=== PATIENT | female | born 1955 | race Caucasian/White ===

== ENCOUNTER 2016-05-11 15:02 | Inpatient (IN) | payer OTHER ==
[~2016-05-11] VITALS: Ht 175.3 cm; Wt 105.7 kg
--- NOTE | ~2016-05-11 | H ---
[facility] [place] [address] HISTORY AND PHYSICAL Name: PRETTY JOHNSON TIA Room #: 456-P ADM IN M.R.#: [id number] Admission: 05/11/16 Attend Phys: Mick Menchaca MD Discharge: Date of : 55 Report #: [id number] THIS REPORT FOR: //name// CC: YANIRA physician/PCP Mick Menchaca DATE OF SERVICE: 05/11/2016 TYPE OF DICTATION: Admission H and P after uvhb-xa-vomi encounter. CHIEF COMPLAINT: Left lower extremity redness. HISTORY OF PRESENT ILLNESS: A 60-year-old female presents to the ER complaining of left thigh pain, mainly redness over the last 3 weeks. It was coming and going, she was using some treatments as an outpatient, but the condition continues to recur. The patient reported that this started as a skin nodule and did get worsen over the last night. So, patient visiting some ER and they did some antibiotic shots without any response. She stated that she has a fever of 101, but she took some Motrin this afternoon. She stated that she was receiving treatment for the last 3 weeks for this redness, but with wax and wane. She has left foot deformity which is going on for a long time and she is following with the wound clinic for that. REVIEW OF SYSTEMS: Except that mentioned in the H and P, all other systems are negative. PAST MEDICAL HISTORY: Positive for hypertension and diabetes mellitus. PAST SURGICAL HISTORY: Multiple surgeries in the foot, mainly left foot and multiple surgeries in the wrist, shoulder. ALLERGIES: She is allergic to DEMEROL. MEDICATIONS: See admission reconciliation sheet. SOCIAL HISTORY: She does not smoke, drink or use any recreational drugs. PHYSICAL EXAMINATION: GENERAL: She is alert, oriented, not in acute distress. VITAL SIGNS: Blood pressure 93/68, temperature 37, pulse 116, respirations 22. HEENT: PERRLA. Intact extraocular muscles. No icterus. NECK: Supple, no JVD, no bruit, no thyroid. CHEST: Good air entry both sides. Normal respiratory effort. CARDIOVASCULAR: Regular rate and rhythm. No murmur, rub or gallop. ABDOMEN: Lax, nontender. Positive bowel sounds. No organomegaly appreciated. EXTREMITIES: No cyanosis, clubbing or edema. There is a deformity in the left [facility] [address] [place] [address] HISTORY AND PHYSICAL Name: PRETTY JOHNSON TIA Room #: 456-P [facility]#: [id number] Admission: 05/11/16 Attend Phys: Mick Menchaca MD Discharge: Date of : 55 Report #: [id number]. SKIN: There is significant erythema, warm and tenderness in the left inner thigh. NEUROLOGIC: Cranial nerves 2-12 are intact. No focal neurological signs. PSYCHIATRIC: Normal affect, mood and judgment. LABORATORY DATA: She has a sodium of 139, potassium 4.4, chloride 103, carbon dioxide 26, anion gap 10, BUN 15, creatinine 1.2, lactic acid 1.4, glucose 204. LFTs are within normal. CBC with differential within normal. ASSESSMENT AND PLAN: 1. Left lower extremity cellulitis. We are going to admit the patient to the hospital. She failed outside treatment so far, so we are going to start her on Zosyn and vancomycin and do some cultures, blood cultures and skin cultures if necessary. 2. Hypertension, seems to be in a good range, so we are going to continue home medicines for that. 3. Diabetes mellitus. Her blood sugars are high. We are going to continue some long-acting insulin on sliding scale for now. 4. Acute renal failure with creatinine 1.2. I do not know her baseline, but her creatinine is elevated, so we are going to hydrate her gently and in the same time, follow her kidney function. <ELECTRONICALLY SIGNED> By: Mick Menchaca MD 05/12/16 0921 [id number] Mick Menchaca MD /nt
--- NOTE | ~2016-05-11 | HC ---
[facility] [place] [address] CONSULTATION Name: PRETTY JOHNSON TIA Room #: 456-P ADM IN M.R.#: [id number] Admission: 05/11/16 Attend Phys: Mick Menchaca MD Discharge: Date of : 55 Report #: [id number] THIS REPORT FOR: //name// CC: YANIRA physician/PCP Mick Menchaca INFECTIOUS DISEASE CONSULTATION REASON FOR CONSULTATION: I was asked to evaluate concerning left lower extremity infection. HISTORY OF PRESENT ILLNESS: The patient was a 60-year-old diabetic who has a left foot crush injury 18 years ago, required surgical debridement and latissimus dorsi flap reconstruction of the soft tissues. Overall, has done reasonably well, although she has had a continued sinus tract to the plantar aspect of her first metatarsal head. She has been treating this as an outpatient and with podiatry. Over the last year or so, she has been unable to get it to heal. 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 She has [facility] [place]. She has been seen by Infectious Diseases several months ago, and treated with a two week course of antibiotics, but she noticed no improvement. She had been off antibiotics for at least 2 or 3 months. She has had CT scan of the foot, which showed no evidence of osteomyelitis. Over the last several weeks, she has noticed increased pain, swelling involving the medial foot as well as upper medial calf and thigh. No antibiotics have been given. She then developed fever over 102 degrees the day of her admission. Because of this, she presented for further evaluation. There has been no drainage of significance from her foot. We have no recent cultures. She has been placed on vancomycin and Zosyn. Continues to have swelling and tenderness in the medial leg. No history of MRSA infections. Diabetes has been under good control. ALLERGIES: DEMEROL. MEDICATIONS: As noted on her MAR, now on vancomycin and Zosyn. PAST MEDICAL HISTORY: Diabetes, otherwise reasonably healthy. Does have some hypertension. SOCIAL HISTORY: Nonsmoker, no significant alcohol intake. REVIEW OF SYSTEMS: No cough, sputum, nausea, vomiting, diarrhea, dysuria or frequency. PHYSICAL EXAMINATION: VITAL SIGNS: Afebrile, hemodynamically stable. GENERAL: She is alert and cooperative and pleasant, no acute distress. [address] [address] CONSULTATION Name: PRETTY JOHNSON TIA Room #: 456-P [facility] IN .R.#: [id number] Admission: 05/11/16 Attend Phys: Mick Menchaca MD Discharge: Date of : 55 Report #: [id number] HEENT: Unremarkable. NECK: Supple. LUNGS: Clear. HEART: Regular without murmur. ABDOMEN: Soft and nontender. No hepatosplenomegaly or mass. Moderately obese. EXTREMITIES: Pulses in the left lower extremity, 2+ in the femoral, 2+ in the popliteal, 2+ in the dorsalis pedis and posterior tibial. She had left medial foot changes from her myocutaneous flap coverage. There is a small wound over the plantar aspect of her first metatarsal head. No purulent drainage. Did not appear to be any sinus tract. There was erythema to the posterior medial aspect of her ankle, which extended up her medial and anterior calf and medial thigh. There was evidence of lymphangitis with nodular area both in the calf and in the thigh. Groin was unremarkable. Capillary refill in the toes normal. Foot was malformed from the previous injury. Sensation was intact. LABORATORY STUDIES: Sodium 143, potassium 4.3, bicarbonate of 26, creatinine 1, liver function test normal. Hemoglobin 11.9, white count 7.2, platelet count 173,000. Differential was unremarkable. Vancomycin level 14. Blood cultures are negative. No x-rays obtained. IMPRESSION: A 60-year-old with cellulitis and lymphangitis involving the left lower leg. This seems to emanate from the medial foot. I suspect from the wound over the first metatarsal. This would typically be bacterial in nature. With the chronicity of the changes also must be concerned about fungal infection. Atypical mycobacterium would also be considered. RECOMMENDATION: Continue IV antibiotic therapy, apply heat, moderate elevation. If no improvement, then we will consider biopsy for culture and pathology. We will check antibody. <ELECTRONICALLY SIGNED> By: Skinny Villalba MD 05/15/16 0918 [id number] Skinny Villalba MD /nt
[2016-05-11 15:03] VITALS: BP 93/68
[2016-05-11] MEDS ORDERED: UNICOMPLEX M TA1 TA1 PO (15:24)
[2016-05-11] MEDS ORDERED: LISINOPRIL10 MG PO (15:24)
[2016-05-11] MEDS ORDERED: ZANTAC 150MG T150 MG PO (15:24)
[2016-05-11] MEDS ORDERED: METFORMIN HCL500 MG PO (15:24)
[2016-05-11] MEDS ORDERED: VITAMIN D3400 UNIT PO (15:24)
[2016-05-11 15:50] LABS: ABSOLUTE NEUTROPHILS 6.6 thou/uL (1.4-8.2); BASOPHILS 0.6 % (0.0-2.0); EOSINOPHILS 0.5 % (0.0-3.0); HEMATOCRIT 37.8 % (37.0-47.0); HEMOGLOBIN 12.5 gm/dL (12.0-15.0); LYMPHOCYTES 23.5 % (24.0-44.0); MANUAL DIFF NO; MCHC 33.1 % (28.0-37.0); MCV 90.6 fL (80.0-100.0); MONOCYTES 5.5 % (1.0-8.0); PLATELET COUNT 181 thou/uL (150-400); POLYS 69.9 % (36.0-66.0); RBC 4.17 mil/uL (4.20-5.00); RDW 13.3 % (10.5-14.5); WBC 9.5 thou/uL (4.0-11.0)
[2016-05-11 15:59] LABS: CALCIUM 8.8 mg/dL (8.5-10.1); CREATININE 1.2 mg/dL (0.6-1.3)
[2016-05-11 16:04] LABS: ALBUMIN 3.5 g/dL (3.4-5.0); POTASSIUM 4.4 mmol/L (3.5-5.1); TOTAL BILIRUBIN 0.5 mg/dL (<0.1-1.0); TOTAL PROTEIN 8.2 g/dL (6.4-8.2)
[2016-05-11 17:00] VITALS: BP 135/78
[2016-05-11 17:20] VITALS: BP 141/93
[2016-05-11 19:29] VITALS: BP 114/74
[2016-05-11 23:40] VITALS: BP 106/74
[2016-05-12] MEDS ORDERED: IBUPROFEN 800800 M1 PO (00:23)
[2016-05-12] MEDS ORDERED: NORCO 10-325 T1 EACH PO (00:24)
[2016-05-12 04:43] VITALS: BP 127/66
[2016-05-12 05:44] LABS: HEMATOCRIT 35.2 % (37.0-47.0); HEMOGLOBIN 11.5 gm/dL (12.0-15.0); MCH 30.1 pg (26.0-34.0); MCHC 32.7 % (28.0-37.0); MCV 92.2 fL (80.0-100.0); RBC 3.82 mil/uL (4.20-5.00); RDW 13.4 % (10.5-14.5); WBC 9.3 thou/uL (4.0-11.0)
[2016-05-12 05:54] LABS: CALCIUM 8.7 mg/dL (8.5-10.1); POTASSIUM 4.1 mmol/L (3.5-5.1)
[2016-05-12 08:00] VITALS: BP 113/70
[2016-05-12 11:32] VITALS: BP 126/65
[2016-05-12 16:00] VITALS: BP 126/73
[2016-05-12 21:03] VITALS: BP 119/63
[2016-05-13 01:19] LABS: ABSOLUTE NEUTROPHILS 5.7 thou/uL (1.4-8.2); BASOPHILS 0.2 % (0.0-2.0); EOSINOPHILS 1.7 % (0.0-3.0); HEMATOCRIT 35.3 % (37.0-47.0); HEMOGLOBIN 11.5 gm/dL (12.0-15.0); LYMPHOCYTES 23.4 % (24.0-44.0); MCHC 32.5 % (28.0-37.0); MCV 92.3 fL (80.0-100.0); MONOCYTES 10.7 % (1.0-8.0); PLATELET COUNT 151 thou/uL (150-400); RBC 3.82 mil/uL (4.20-5.00); RDW 13.2 % (10.5-14.5)
[2016-05-13 01:24] LABS: MANUAL DIFF NO
[2016-05-13 01:42] LABS: CALCIUM 8.7 mg/dL (8.5-10.1); POTASSIUM 4.3 mmol/L (3.5-5.1)
[2016-05-13 04:00] VITALS: BP 130/81
[2016-05-13 07:30] VITALS: BP 120/75
[2016-05-13 12:20] VITALS: BP 125/72
[2016-05-13 16:05] VITALS: BP 120/71
[2016-05-13 19:10] VITALS: BP 125/69
[2016-05-14 04:15] VITALS: BP 133/71
[2016-05-14 05:40] LABS: ABSOLUTE NEUTROPHILS 4.3 thou/uL (1.4-8.2); BASOPHILS 0.3 % (0.0-2.0); HEMATOCRIT 36.8 % (37.0-47.0); HEMOGLOBIN 11.9 gm/dL (12.0-15.0); LYMPHOCYTES 29.8 % (24.0-44.0); MCH 29.7 pg (26.0-34.0); MCHC 32.5 % (28.0-37.0); MCV 91.4 fL (80.0-100.0); MONOCYTES 8.9 % (1.0-8.0); PLATELET COUNT 173 thou/uL (150-400); RBC 4.02 mil/uL (4.20-5.00); RDW 13.5 % (10.5-14.5); WBC 7.2 thou/uL (4.0-11.0)
[2016-05-14 05:43] LABS: MANUAL DIFF NO
[2016-05-14 05:51] LABS: CALCIUM 9.2 mg/dL (8.5-10.1); POTASSIUM 4.3 mmol/L (3.5-5.1)
[2016-05-14 09:15] VITALS: BP 115/74
[2016-05-14 12:13] VITALS: BP 126/78
[2016-05-14 16:24] VITALS: BP 113/63
[2016-05-14 19:46] VITALS: BP 131/80
[2016-05-15 03:49] VITALS: BP 163/69
[2016-05-15 03:58] VITALS: BP 151/61
[2016-05-15 05:41] LABS: ABSOLUTE NEUTROPHILS 3.7 thou/uL (1.4-8.2); BASOPHILS 0.4 % (0.0-2.0); EOSINOPHILS 2.4 % (0.0-3.0); HEMATOCRIT 37.1 % (37.0-47.0); HEMOGLOBIN 12.2 gm/dL (12.0-15.0); MCH 30.1 pg (26.0-34.0); MCHC 32.9 % (28.0-37.0); MCV 91.4 fL (80.0-100.0); MONOCYTES 8.8 % (1.0-8.0); PLATELET COUNT 188 thou/uL (150-400); POLYS 55.4 % (36.0-66.0); RBC 4.06 mil/uL (4.20-5.00); WBC 6.8 thou/uL (4.0-11.0)
[2016-05-15 05:42] LABS: MANUAL DIFF NO
[2016-05-15 05:57] LABS: CREATININE 0.9 mg/dL (0.6-1.3); POTASSIUM 4.7 mmol/L (3.5-5.1)
[2016-05-15 05:58] LABS: CALCIUM 9.2 mg/dL (8.5-10.1)
[2016-05-15 09:50] VITALS: BP 127/82
[2016-05-15 13:00] VITALS: BP 129/63
[2016-05-15 16:00] VITALS: BP 122/59; BP 137/71
[2016-05-15 20:41] VITALS: BP 99/57
[2016-05-16 04:21] VITALS: BP 143/76
[2016-05-16 08:20] VITALS: BP 130/77
[2016-05-16 11:55] VITALS: BP 128/84
[2016-05-16] MEDS ORDERED: KEFLEX500 MG PO (16:58)
[2016-05-16 17:04] VITALS: BP 128/84
== END 2016-05-16 18:31 | disposition home or self-care (01) | DRG 638 ==
LOC: ER 15:02 → EROBS 16:21 → 4W 16:21
PROVIDERS: Hospitalist; Physician Assistant
DX: E11.628 Type 2 diabetes mellitus with other skin complications (principal); L03.116 Cellulitis of left lower limb; N17.9 Acute kidney failure, unspecified; I10 Essential (primary) hypertension; Z98.890 Other specified postprocedural states; Z88.5 Allergy status to narcotic agent
CPT/HCPCS: 10045

== ENCOUNTER → 2016-12-25 | Outpatient (CLI) | payer OTHER ==
[~2016-12-25] MED LIST: IBUPROFEN 800800 M1 PO; KEFLEX500 MG PO; LISINOPRIL10 MG PO; METFORMIN HCL500 MG PO; NORCO 10-325 T1 EACH PO; UNICOMPLEX M TA1 TA1 PO; VITAMIN D3400 UNIT PO; ZANTAC 150MG T150 MG PO
== END ==
LOC: HYPER 07:03
DX: E11.621 Type 2 diabetes mellitus with foot ulcer (principal); L97.522 Non-pressure chronic ulcer of other part of left foot with fat layer exposed; E66.01 Morbid (severe) obesity due to excess calories; I10 Essential (primary) hypertension

== ENCOUNTER 2016-12-29 16:27 | Inpatient (IN) | payer OTHER | END 2017-01-01 14:37 | disposition home health service (06) | DRG 871 | LOC: ER 16:27 → EROBS 19:06 → 4E 20:39 | PROC: 05H533Z Insertion of Infusion Device into Right Subclavian Vein, Percutaneous Approach (ICD-10-PCS; principal; 2016-12-31) | DX: A41.9 Sepsis, unspecified organism (principal); N17.0 Acute kidney failure with tubular necrosis; L03.116 Cellulitis of left lower limb; I10 Essential (primary) hypertension; E66.9 Obesity, unspecified; M14.672 Charcot's joint, left ankle and foot; E11.621 Type 2 diabetes mellitus with foot ulcer; L97.529 Non-pressure chronic ulcer of other part of left foot with unspecified severity; Z79.899 Other long term (current) drug therapy; Z88.8 Allergy status to other drugs, medicaments and biological substances; Z68.33 Body mass index [BMI] 33.0-33.9, adult ==

== ENCOUNTER → 2017-01-15 | Outpatient (CLI) | payer OTHER ==
[~2017-01-15] MED LIST changes: +CEFTRIAXON1 GM/50 M1 IVPB
== END ==
LOC: HYPER 06:48
DX: E11.621 Type 2 diabetes mellitus with foot ulcer (principal); L97.522 Non-pressure chronic ulcer of other part of left foot with fat layer exposed; E66.01 Morbid (severe) obesity due to excess calories; I10 Essential (primary) hypertension; Z68.34 Body mass index [BMI] 34.0-34.9, adult

== ENCOUNTER → 2017-02-13 | Outpatient (CLI) | payer OTHER | LOC: HYPER 07:10 | DX: E11.621 Type 2 diabetes mellitus with foot ulcer (principal); L97.522 Non-pressure chronic ulcer of other part of left foot with fat layer exposed; E66.01 Morbid (severe) obesity due to excess calories ==

== ENCOUNTER → 2017-04-10 | Outpatient (CLI) | payer OTHER | LOC: HYPER 06:43 | DX: E11.621 Type 2 diabetes mellitus with foot ulcer (principal); L97.522 Non-pressure chronic ulcer of other part of left foot with fat layer exposed; E66.01 Morbid (severe) obesity due to excess calories; I10 Essential (primary) hypertension; Z68.34 Body mass index [BMI] 34.0-34.9, adult ==

== ENCOUNTER → 2017-05-01 | Outpatient (CLI) | payer OTHER | LOC: HYPER 06:30 | DX: E11.621 Type 2 diabetes mellitus with foot ulcer (principal); L97.522 Non-pressure chronic ulcer of other part of left foot with fat layer exposed; E66.01 Morbid (severe) obesity due to excess calories; I10 Essential (primary) hypertension; Z68.34 Body mass index [BMI] 34.0-34.9, adult ==

== ENCOUNTER → 2017-06-10 | Outpatient (CLI) | payer OTHER ==
[~2017-06-10] MED LIST changes: +BACTRIM DS TAB1 EACH PO; +CIPROFLOXACIN250 M2 PO; +CO Q-10100 MG PO; +CUBICIN500 MG IVPB; +KEFLEX500 M1 PO; +LIPITOR10 MG PO; +TEFLARO 600 MG600 MG IV
== END ==
LOC: HYPER 05-27 11:41
DX: E11.621 Type 2 diabetes mellitus with foot ulcer (principal); L97.522 Non-pressure chronic ulcer of other part of left foot with fat layer exposed; E66.01 Morbid (severe) obesity due to excess calories; I10 Essential (primary) hypertension; Z68.34 Body mass index [BMI] 34.0-34.9, adult

== ENCOUNTER → 2017-06-24 | Outpatient (CLI) | payer OTHER | LOC: HYPER 06:54 | DX: E11.621 Type 2 diabetes mellitus with foot ulcer (principal); L97.522 Non-pressure chronic ulcer of other part of left foot with fat layer exposed; E66.01 Morbid (severe) obesity due to excess calories; Z68.34 Body mass index [BMI] 34.0-34.9, adult; I10 Essential (primary) hypertension ==

== ENCOUNTER → 2017-07-08 | Outpatient (CLI) | payer OTHER | LOC: HYPER 07:07 | DX: E11.621 Type 2 diabetes mellitus with foot ulcer (principal); L97.522 Non-pressure chronic ulcer of other part of left foot with fat layer exposed; E66.01 Morbid (severe) obesity due to excess calories; I10 Essential (primary) hypertension; Z68.34 Body mass index [BMI] 34.0-34.9, adult ==

== ENCOUNTER → 2017-07-22 | Outpatient (CLI) | payer OTHER | LOC: HYPER 06:50 | DX: E11.621 Type 2 diabetes mellitus with foot ulcer (principal); L97.522 Non-pressure chronic ulcer of other part of left foot with fat layer exposed; E66.01 Morbid (severe) obesity due to excess calories; Z68.34 Body mass index [BMI] 34.0-34.9, adult; I10 Essential (primary) hypertension ==

== ENCOUNTER → 2017-08-05 | Outpatient (CLI) | payer OTHER | LOC: HYPER 07:04 | DX: E11.621 Type 2 diabetes mellitus with foot ulcer (principal); L97.522 Non-pressure chronic ulcer of other part of left foot with fat layer exposed; E66.01 Morbid (severe) obesity due to excess calories; Z68.34 Body mass index [BMI] 34.0-34.9, adult; I10 Essential (primary) hypertension ==

== ENCOUNTER → 2017-08-27 | Outpatient (CLI) | payer OTHER ==
[~2017-08-27] MED LIST changes: -BACTRIM DS TAB1 EACH PO; -CIPROFLOXACIN250 M2 PO; -CO Q-10100 MG PO; -CUBICIN500 MG IVPB; -KEFLEX500 M1 PO; -LIPITOR10 MG PO; -TEFLARO 600 MG600 MG IV
== END ==
LOC: HYPER 07:49
DX: E11.621 Type 2 diabetes mellitus with foot ulcer (principal); L97.521 Non-pressure chronic ulcer of other part of left foot limited to breakdown of skin; I10 Essential (primary) hypertension; E66.01 Morbid (severe) obesity due to excess calories; Z68.34 Body mass index [BMI] 34.0-34.9, adult

== ENCOUNTER 2017-09-07 19:17 | Emergency (ER) | payer OTHER ==
[~2017-09-07] VITALS: Ht 175.3 cm; Wt 110.2 kg
[2017-09-07] MEDS ORDERED: KEFLEX500 M1 PO (19:32)
[2017-09-07] MEDS ORDERED: LIPITOR10 MG PO (19:33)
[2017-09-07] MEDS ORDERED: CO Q-10100 MG PO (19:33)
[2017-09-07] MEDS ORDERED: BACTRIM DS TAB1 EACH PO (19:44)
== END 2017-09-07 19:52 | disposition home or self-care (01) ==
LOC: ER 19:17
DX: L03.116 Cellulitis of left lower limb (principal); E11.9 Type 2 diabetes mellitus without complications; I10 Essential (primary) hypertension

== ENCOUNTER → 2017-11-25 | Outpatient (CLI) | payer OTHER ==
[~2017-11-25] MED LIST changes: +BACTRIM DS TAB1 EACH PO; +CIPROFLOXACIN250 M2 PO; +CO Q-10100 MG PO; +CUBICIN500 MG IVPB; +KEFLEX500 M1 PO; +LIPITOR10 MG PO; +TEFLARO 600 MG600 MG IV
== END ==
LOC: HYPER 11-03 07:13
DX: E11.621 Type 2 diabetes mellitus with foot ulcer (principal); L97.522 Non-pressure chronic ulcer of other part of left foot with fat layer exposed; I10 Essential (primary) hypertension; L84 Corns and callosities; E66.01 Morbid (severe) obesity due to excess calories; Z68.34 Body mass index [BMI] 34.0-34.9, adult

== ENCOUNTER → 2017-12-16 | Outpatient (CLI) | payer OTHER | LOC: HYPER 13:00 | DX: E11.621 Type 2 diabetes mellitus with foot ulcer (principal); L97.522 Non-pressure chronic ulcer of other part of left foot with fat layer exposed; L84 Corns and callosities; I10 Essential (primary) hypertension; E66.01 Morbid (severe) obesity due to excess calories; Z68.34 Body mass index [BMI] 34.0-34.9, adult ==

== ENCOUNTER → 2018-02-19 | Outpatient (CLI) | payer OTHER | LOC: HYPER 02-12 12:42 | DX: E11.621 Type 2 diabetes mellitus with foot ulcer (principal); L97.522 Non-pressure chronic ulcer of other part of left foot with fat layer exposed; L84 Corns and callosities; E66.01 Morbid (severe) obesity due to excess calories; I10 Essential (primary) hypertension ==

== ENCOUNTER → 2018-03-05 | Outpatient (CLI) | payer OTHER | LOC: HYPER 02-26 09:00 | DX: E11.621 Type 2 diabetes mellitus with foot ulcer (principal); L97.522 Non-pressure chronic ulcer of other part of left foot with fat layer exposed; L84 Corns and callosities; E66.01 Morbid (severe) obesity due to excess calories; I10 Essential (primary) hypertension ==

== ENCOUNTER → 2018-03-19 | Outpatient (CLI) | payer OTHER | LOC: HYPER 03-12 07:26 | DX: E11.621 Type 2 diabetes mellitus with foot ulcer (principal); L97.522 Non-pressure chronic ulcer of other part of left foot with fat layer exposed; L84 Corns and callosities; E66.01 Morbid (severe) obesity due to excess calories; I10 Essential (primary) hypertension ==

== ENCOUNTER → 2018-03-26 | Outpatient (CLI) | payer OTHER | LOC: HYPER 07:08 | DX: E11.621 Type 2 diabetes mellitus with foot ulcer (principal); L97.522 Non-pressure chronic ulcer of other part of left foot with fat layer exposed; L84 Corns and callosities; E66.01 Morbid (severe) obesity due to excess calories; I10 Essential (primary) hypertension; Z68.34 Body mass index [BMI] 34.0-34.9, adult ==

== ENCOUNTER → 2018-04-09 | Outpatient (CLI) | payer OTHER | LOC: HYPER 07:06 | DX: E11.621 Type 2 diabetes mellitus with foot ulcer (principal); L97.522 Non-pressure chronic ulcer of other part of left foot with fat layer exposed; L84 Corns and callosities; E66.01 Morbid (severe) obesity due to excess calories; I10 Essential (primary) hypertension ==

== ENCOUNTER → 2018-04-23 | Outpatient (CLI) | payer OTHER | LOC: HYPER 04-16 12:12 | DX: E11.621 Type 2 diabetes mellitus with foot ulcer (principal); L97.522 Non-pressure chronic ulcer of other part of left foot with fat layer exposed; L84 Corns and callosities; E66.01 Morbid (severe) obesity due to excess calories; I10 Essential (primary) hypertension ==

== ENCOUNTER → 2018-05-07 | Outpatient (CLI) | payer OTHER | LOC: HYPER 06:54 | DX: E11.621 Type 2 diabetes mellitus with foot ulcer (principal); L97.522 Non-pressure chronic ulcer of other part of left foot with fat layer exposed; L84 Corns and callosities; E66.01 Morbid (severe) obesity due to excess calories; I10 Essential (primary) hypertension ==

== ENCOUNTER → 2018-06-04 | Outpatient (CLI) | payer OTHER | LOC: HYPER 05-21 06:44 | DX: E11.621 Type 2 diabetes mellitus with foot ulcer (principal); L97.522 Non-pressure chronic ulcer of other part of left foot with fat layer exposed; L84 Corns and callosities; E66.01 Morbid (severe) obesity due to excess calories; I10 Essential (primary) hypertension ==

== ENCOUNTER → 2018-07-14 | Outpatient (CLI) | payer OTHER | LOC: HYPER 06-16 07:04 | DX: E11.621 Type 2 diabetes mellitus with foot ulcer (principal); L97.522 Non-pressure chronic ulcer of other part of left foot with fat layer exposed; L84 Corns and callosities; E66.01 Morbid (severe) obesity due to excess calories; I10 Essential (primary) hypertension; Z68.34 Body mass index [BMI] 34.0-34.9, adult ==

== ENCOUNTER → 2018-08-11 | Outpatient (CLI) | payer OTHER | LOC: HYPER 08:33 | DX: E11.621 Type 2 diabetes mellitus with foot ulcer (principal); L97.522 Non-pressure chronic ulcer of other part of left foot with fat layer exposed; L84 Corns and callosities; E66.01 Morbid (severe) obesity due to excess calories; I10 Essential (primary) hypertension; Z68.34 Body mass index [BMI] 34.0-34.9, adult ==

== ENCOUNTER → 2018-09-21 | Outpatient (CLI) | payer OTHER | LOC: HYPER 09-01 12:12 | DX: E11.621 Type 2 diabetes mellitus with foot ulcer (principal); L97.522 Non-pressure chronic ulcer of other part of left foot with fat layer exposed; L84 Corns and callosities; E66.01 Morbid (severe) obesity due to excess calories; I10 Essential (primary) hypertension; Z68.34 Body mass index [BMI] 34.0-34.9, adult ==

== ENCOUNTER → 2018-10-13 | Outpatient (CLI) | payer OTHER | LOC: HYPER 06:56 | DX: E11.621 Type 2 diabetes mellitus with foot ulcer (principal); L97.522 Non-pressure chronic ulcer of other part of left foot with fat layer exposed; E66.01 Morbid (severe) obesity due to excess calories; L84 Corns and callosities; I10 Essential (primary) hypertension; Z68.34 Body mass index [BMI] 34.0-34.9, adult ==

== ENCOUNTER → 2018-10-28 | Outpatient (CLI) | payer OTHER | LOC: HYPER 10-13 11:09 | DX: E11.621 Type 2 diabetes mellitus with foot ulcer (principal); L97.522 Non-pressure chronic ulcer of other part of left foot with fat layer exposed; L84 Corns and callosities; E66.01 Morbid (severe) obesity due to excess calories; I10 Essential (primary) hypertension; Z68.34 Body mass index [BMI] 34.0-34.9, adult ==

== ENCOUNTER → 2018-12-09 | Outpatient (CLI) | payer OTHER | LOC: HYPER 06:41 | DX: E11.621 Type 2 diabetes mellitus with foot ulcer (principal); L97.522 Non-pressure chronic ulcer of other part of left foot with fat layer exposed; L84 Corns and callosities; E66.01 Morbid (severe) obesity due to excess calories; I10 Essential (primary) hypertension ==

== ENCOUNTER 2018-12-16 13:49 | Inpatient (IN) | payer OTHER ==
[~2018-12-16] VITALS: Ht 175.3 cm; Wt 106.6 kg
[~2018-12-16 13:49] MED LIST changes: -LISINOPRIL10 MG PO; +LISINOPRIL20 MG PO
[2018-12-16 17:27] VITALS: BP 137/66
[2018-12-16 18:04] LABS: HEMATOCRIT 35.4 % (37.0-47.0); HEMOGLOBIN 12.1 gm/dL (12.0-15.0); MCH 31.6 pg (26.0-34.0); MCHC 34.1 g/dL (28.0-37.0); MCV 92.4 fL (80.0-100.0); RBC 3.83 mil/uL (4.20-5.00); RDW 13.7 % (10.5-14.5); WBC 8.9 thou/uL (4.0-11.0)
[2018-12-16 18:21] LABS: ALBUMIN 3.8 g/dL (3.4-5.0); CALCIUM 9.3 mg/dL (8.5-10.1); CREATININE 1.3 mg/dL (0.6-1.0); MAGNESIUM 1.7 mg/dL (1.8-2.4); POTASSIUM 4.3 mmol/L (3.5-5.1); TOTAL BILIRUBIN 0.2 mg/dL (<0.1-1.0); TOTAL PROTEIN 7.5 g/dL (6.4-8.2)
[2018-12-16 18:48] LABS: TSH 1.686 uIU/mL (0.358-3.740)
--- NOTE | 2018-12-16 19:22 | NUR ---
[age] YEAR OLD FEMALE DIRECT ADMIT FROM WOUND CARE CLINIC. PT ADMITTED FOR CELLULITIS OF LEFT FOOT. PT ALSO HAS WOUND ON HER LEFT FOOT. PT REFUSED TO HAVE ADMIT PICTURES TAKEN. ADMITTING DR AND WOUND CARE DR BOTH AWARE. PT IS ALERT AND ORIENTED TIMES FOUR. VSS, STATES PAIN WAS OK DURING ADMISSION ASSESSMENT. PT UP IN WHEEL CHAIR. PT TOLERATES MEDS AND MEALS. WILL CONTINUE TO MONITOR.
[2018-12-17 04:57] VITALS: BP 142/86
[2018-12-17 05:15] LABS: HEMATOCRIT 35.5 % (37.0-47.0); HEMOGLOBIN 11.8 gm/dL (12.0-15.0); MCH 30.9 pg (26.0-34.0); MCHC 33.3 g/dL (28.0-37.0); MCV 92.8 fL (80.0-100.0); RBC 3.83 mil/uL (4.20-5.00); RDW 13.8 % (10.5-14.5)
--- NOTE | 2018-12-17 05:21 | NUR ---
Assumed pt care at 1900. Pt A/OX4,VSS. Order obtained for pain meds from and administered with relief reported. Pt is up w/SBA uses WC to propel around without any problems voiced. Dressing in place on Left foot. Fall safety education reinforced and pt agreeable to call as needed for help. Pt to have an MRI this morning.
[2018-12-17 05:33] LABS: CALCIUM 9.2 mg/dL (8.5-10.1); CREATININE 1.1 mg/dL (0.6-1.0); MAGNESIUM 1.6 mg/dL (1.8-2.4); POTASSIUM 4.2 mmol/L (3.5-5.1)
[2018-12-17 07:37] VITALS: BP 136/76
[2018-12-17] MEDS ORDERED: ZANTAC 150MG T150 MG PO (08:24)
[2018-12-17] MEDS ORDERED: ONE-A-DAY WOMENS PO (08:25)
[2018-12-17] MEDS ORDERED: GLUCOPHAGE850 MG PO (08:25)
[2018-12-17] MEDS ORDERED: FISH OIL 1,001000 M2 PO (08:26)
[2018-12-17] MEDS ORDERED: VITAMIN D1000 UNI2 PO (08:26)
[2018-12-17] MEDS ORDERED: B-12500 MCG PO (08:27)
[2018-12-17] MEDS ORDERED: ASPIRIN EC81 M1 PO (08:27)
[2018-12-17] MEDS ORDERED: GARLIC1000 MG PO (08:28)
[2018-12-17] MEDS ORDERED: GINKGO BILOBA60 M1 PO (08:28)
--- NOTE | 2018-12-17 12:01 | NUR ---
PT APPROACHED BY THERAPIST AND DECLINED THERAPY EVALUATION AT THIS TIME. PT IS ABLE TO PERFORM TXS IN AND OUT OF HER W/C INDEPENDENTLY AND HAS BEEN INSTRUCTED TO LIMIT WALKING BY HER WOUND CARE PHYSICIAN. PT DOES HAVE CUSTOM ORTHOTIC BOOTS WELL CRUTCHES AND A WALKER AT HOME THAT SHE CAN USE TO AID IN MOBILITY NEEDED TO OFFLOAD L FOOT. PT AWARE THAT SHE CAN HAVE RN RECONTACT P.T. SERVICES IF MOBILITY CONCERNS ARISE. PT PLANS TO RETURN TO HER HOME UPON HOSPITAL D/C.
--- NOTE | 2018-12-17 14:05 | NUR ---
PT ADMITTED RELATED TO CELLULITIS. CM REVIEWED CHART AND SPOKE WITH CARE TEAM. CM MET WITH PT AT BEDSIDE THIS DAY. PT IS A&O X4. CM ROLE INTRODUCED. PT INDICATED SHE LIVES IN A HOUSE ALONE WITH 3 STEPS TO ENTER AND NO STEPS INSIDE. 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 PT INDICATED SHE HAS A WHEELCHAIR SHE USES OUTSIDE THE HOME. PT INDICATED SHE HAD DONE OP INFUSION AT [facility]. PT INDICATED SHE PLANS TO RETURN HOME ONCE MEDICALLY STABLE. CM TO FOLLOW INDICATED WITH DC PLANNING.
--- NOTE | 2018-12-17 14:31 | NUR ---
PHYSICIAN'S ORDER RECEIVED TO EVAL AND TREAT PT. OT APPROACHED PT ABOUT EVALUATION, AND PT STATED THAT SHE DID NOT NEED THERAPY SERVICES. SHE INDICATED THAT HER SON ASSISTS WITH SHOWERING, AND THAT SHE SHOWERS AT HIS HOME ON A BATH BENCH. HER HOUSE DOES NOT HAVE HOT WATER. SHE DEMONSTRATED ABILITY TO REACH FEET, AND DOES NOT ANY ISSUES WITH SELF CARE. NO FURTHER INDICATED, SINCE PT APPEARS AT BASELINE.
[2018-12-17 14:46] VITALS: BP 116/70
--- NOTE | 2018-12-17 15:20 | NUR ---
cm received phone call from [facility] work comp gino with [employer], yasmani # [id number], call with question and set up for dc # [phone], or [phone]
--- NOTE | 2018-12-17 17:28 | NUR ---
PT ALERT AND ORIENTED TIMES FOUR. VSS, PT C/O PAIN LEFT FOOT PRN PAIN MEDICATIONS GIVEN WITH GOOD RELEIF. DRESSING TO FOOT CHANGED PER WOUND CARE TEAM. PT TOLERATES MEDS AND MEALS. PT UP TO WC. PT SLOWLY PROGRESSING TOWRADS POC GOALS.
[2018-12-17 19:51] VITALS: BP 123/61
--- NOTE | 2018-12-18 06:11 | NUR ---
Assumed pt care at 1900. Pt A/OX4,VSS,pleasant. C/o moderate pain to Left foot medicated per EMAR with relief reported,pt also reported she felt like she was trying to catch her breathe while asleep and thought it's r/t too many pain meds "she reports only takes it a few times and might have taken a more than typically does since admission and declines anymore at this time and also rates pain is tolerable at this time. Up with IV pole/WC without any problems. Isolation maintained,MRSA nare swab obtained awaiting results. Will continue to monitor pt.
[2018-12-18 07:54] LABS: HEMATOCRIT 37.9 % (37.0-47.0); HEMOGLOBIN 12.6 gm/dL (12.0-15.0); MCH 30.7 pg (26.0-34.0); MCHC 33.2 g/dL (28.0-37.0); MCV 92.4 fL (80.0-100.0); RBC 4.1 mil/uL (4.20-5.00); RDW 13.8 % (10.5-14.5); WBC 5.8 thou/uL (4.0-11.0)
[2018-12-18 08:04] LABS: CALCIUM 9.5 mg/dL (8.5-10.1); CREATININE 1.1 mg/dL (0.6-1.0)
[2018-12-18 08:40] VITALS: BP 115/87
--- NOTE | 2018-12-18 09:25 | NUR ---
Pt seen per wound risk. Here with cellulitis, L plantar foot ulcer. Hx DM II, CKD stage III. Note ID and wound consult. On antibiotics. Visited this AM. Pt eating extremely well - 100% intake at all 3 meals yesterday. Reports eating very healthy foods at home- "eat too much of all the good stuff." BGs staying well controlled, 119 mg/dl fasting this AM per pt without meds; 101-154 mg/dl per 12/17. On Humalog SSI as needed. No weight loss; in fact, up +5-6# between 12/2016 (230#) to 10/2017 (236#). Stable wt x 14 months at 235# this admit. Focused on protein focus, importance of good nutrition, encouraging vitamin C and zinc foods for wound support too. No further needs. Low nutrition risk.
[2018-12-18] MEDS ORDERED: LIPITOR10 MG PO (16:42)
[2018-12-18] MEDS ORDERED: DOXYCYCLINE HYC50 MG PO (16:42)
[2018-12-18] MEDS ORDERED: PROBIOTIC1 EAC1 PO (16:42)
[2018-12-18 16:59] VITALS: BP 115/87
--- NOTE | 2018-12-18 18:18 | NUR ---
Assumed pt care this am, pt is able to ambulate in her room with a steady gait but with use of her shoes. Pt has a wheelchair that is used for longer periods when needed at home as she stated. Isolation maintained, no pain has been noted. VS stable, no signs of distress have been verbalized and noted. Pt has been seen by Orly Collier and cleared. POC followed, pt refused wound care and dc picture to be taken. DC instrutions and prescriptions given , IV removed, pt drove her selfe home.
== END 2018-12-18 18:23 | disposition home or self-care (01) | DRG 638 ==
LOC: HYPER 13:49 → 4W 16:49
PROVIDERS: ADMIT Internal Medicine
DX: E11.621 Type 2 diabetes mellitus with foot ulcer (principal); L03.116 Cellulitis of left lower limb; E11.22 Type 2 diabetes mellitus with diabetic chronic kidney disease; I12.9 Hypertensive chronic kidney disease with stage 1 through stage 4 chronic kidney disease, or unspecified chronic kidney disease; N18.3 Chronic kidney disease, stage 3 (moderate); E83.42 Hypomagnesemia; L97.529 Non-pressure chronic ulcer of other part of left foot with unspecified severity; Z96.653 Presence of artificial knee joint, bilateral; Z87.891 Personal history of nicotine dependence; Z79.82 Long term (current) use of aspirin; Z87.828 Personal history of other (healed) physical injury and trauma; Z79.84 Long term (current) use of oral hypoglycemic drugs; Z79.899 Other long term (current) drug therapy; Z88.8 Allergy status to other drugs, medicaments and biological substances
CPT/HCPCS: 10047

== ENCOUNTER → 2018-12-22 | Outpatient (CLI) | payer OTHER ==
[~2018-12-22] MED LIST changes: +ASPIRIN EC81 M1 PO; +B-12500 MCG PO; +DOXYCYCLINE HYC50 MG PO; +FISH OIL 1,001000 M2 PO; +GARLIC1000 MG PO; +GINKGO BILOBA60 M1 PO; +GLUCOPHAGE850 MG PO; +ONE-A-DAY WOMENS PO; +PROBIOTIC1 EAC1 PO; +VITAMIN D1000 UNI2 PO
== END ==
LOC: HYPER 06:50
DX: E11.621 Type 2 diabetes mellitus with foot ulcer (principal); L97.522 Non-pressure chronic ulcer of other part of left foot with fat layer exposed; L03.116 Cellulitis of left lower limb; L84 Corns and callosities; E66.01 Morbid (severe) obesity due to excess calories; I10 Essential (primary) hypertension

== ENCOUNTER → 2019-01-25 | Outpatient (CLI) | payer OTHER | LOC: HYPER 06:50 | DX: E11.621 Type 2 diabetes mellitus with foot ulcer (principal); L97.522 Non-pressure chronic ulcer of other part of left foot with fat layer exposed; L84 Corns and callosities; E66.01 Morbid (severe) obesity due to excess calories; I10 Essential (primary) hypertension ==

== ENCOUNTER → 2019-02-15 | Outpatient (CLI) | payer OTHER | LOC: HYPER 01-05 16:19 | DX: E11.621 Type 2 diabetes mellitus with foot ulcer (principal); L97.522 Non-pressure chronic ulcer of other part of left foot with fat layer exposed; E66.01 Morbid (severe) obesity due to excess calories; I10 Essential (primary) hypertension; Z68.32 Body mass index [BMI] 32.0-32.9, adult ==

== ENCOUNTER → 2019-03-09 | Outpatient (CLI) | payer OTHER | LOC: HYPER 11:55 | DX: E11.621 Type 2 diabetes mellitus with foot ulcer (principal); L97.522 Non-pressure chronic ulcer of other part of left foot with fat layer exposed; S97.82XS Crushing injury of left foot, sequela; E66.01 Morbid (severe) obesity due to excess calories; I10 Essential (primary) hypertension; Z68.32 Body mass index [BMI] 32.0-32.9, adult; X58.XXXD Exposure to other specified factors, subsequent encounter ==

== ENCOUNTER → 2019-04-12 | Outpatient (CLI) | payer OTHER | LOC: HYPER 16:06 | DX: E11.621 Type 2 diabetes mellitus with foot ulcer (principal); L97.522 Non-pressure chronic ulcer of other part of left foot with fat layer exposed; I10 Essential (primary) hypertension; E66.01 Morbid (severe) obesity due to excess calories; Z68.32 Body mass index [BMI] 32.0-32.9, adult ==

== ENCOUNTER → 2019-05-20 | Outpatient (CLI) | payer OTHER | LOC: HYPER 13:07 | DX: E11.621 Type 2 diabetes mellitus with foot ulcer (principal); L97.522 Non-pressure chronic ulcer of other part of left foot with fat layer exposed; I10 Essential (primary) hypertension; E66.01 Morbid (severe) obesity due to excess calories; Z68.32 Body mass index [BMI] 32.0-32.9, adult; Z79.84 Long term (current) use of oral hypoglycemic drugs ==

== ENCOUNTER → 2019-06-30 | Outpatient (CLI) | payer OTHER | LOC: HYPER 08:50 | DX: E11.621 Type 2 diabetes mellitus with foot ulcer (principal); L97.522 Non-pressure chronic ulcer of other part of left foot with fat layer exposed; L84 Corns and callosities; E66.01 Morbid (severe) obesity due to excess calories; I10 Essential (primary) hypertension ==

== ENCOUNTER → 2021-03-14 | Outpatient (CLI) | payer OTHER | LOC: HYPER 14:02 | PROVIDERS: ATTEND Emergency Medicine | DX: E11.621 Type 2 diabetes mellitus with foot ulcer (principal); L97.522 Non-pressure chronic ulcer of other part of left foot with fat layer exposed; L84 Corns and callosities; I10 Essential (primary) hypertension; E66.01 Morbid (severe) obesity due to excess calories; Z79.84 Long term (current) use of oral hypoglycemic drugs; Z68.35 Body mass index [BMI] 35.0-35.9, adult ==

== ENCOUNTER → 2021-03-28 | Outpatient (CLI) | payer OTHER | LOC: HYPER 10:17 | PROVIDERS: ATTEND Emergency Medicine | DX: E11.621 Type 2 diabetes mellitus with foot ulcer (principal); L97.522 Non-pressure chronic ulcer of other part of left foot with fat layer exposed; L84 Corns and callosities; I10 Essential (primary) hypertension; E66.01 Morbid (severe) obesity due to excess calories; Z79.84 Long term (current) use of oral hypoglycemic drugs; Z68.35 Body mass index [BMI] 35.0-35.9, adult ==

== ENCOUNTER → 2021-04-11 | Outpatient (CLI) | payer OTHER | LOC: HYPER 12:44 | PROVIDERS: ATTEND Emergency Medicine | DX: E11.621 Type 2 diabetes mellitus with foot ulcer (principal); L97.522 Non-pressure chronic ulcer of other part of left foot with fat layer exposed; E11.40 Type 2 diabetes mellitus with diabetic neuropathy, unspecified; I10 Essential (primary) hypertension; E66.01 Morbid (severe) obesity due to excess calories; Z68.35 Body mass index [BMI] 35.0-35.9, adult; Z79.84 Long term (current) use of oral hypoglycemic drugs; Z79.899 Other long term (current) drug therapy ==

== ENCOUNTER → 2021-05-10 | Outpatient (CLI) | payer OTHER | LOC: HYPER 08:17 | PROVIDERS: ATTEND Emergency Medicine | DX: E11.621 Type 2 diabetes mellitus with foot ulcer (principal); L97.522 Non-pressure chronic ulcer of other part of left foot with fat layer exposed; L84 Corns and callosities; E11.40 Type 2 diabetes mellitus with diabetic neuropathy, unspecified; E66.01 Morbid (severe) obesity due to excess calories; I10 Essential (primary) hypertension; Z68.35 Body mass index [BMI] 35.0-35.9, adult; Z79.84 Long term (current) use of oral hypoglycemic drugs ==

== ENCOUNTER → 2021-05-31 | Outpatient (CLI) | payer OTHER | LOC: HYPER 11:02 | PROVIDERS: ATTEND Emergency Medicine | DX: E11.621 Type 2 diabetes mellitus with foot ulcer (principal); L97.522 Non-pressure chronic ulcer of other part of left foot with fat layer exposed; L84 Corns and callosities; E11.40 Type 2 diabetes mellitus with diabetic neuropathy, unspecified; E66.01 Morbid (severe) obesity due to excess calories; I10 Essential (primary) hypertension; Z68.35 Body mass index [BMI] 35.0-35.9, adult; Z79.84 Long term (current) use of oral hypoglycemic drugs ==